=== PATIENT | female | born 1970 | race Caucasian/White ===

== ENCOUNTER → 2018-08-01 | Outpatient (CLI) | payer OTHER ==
--- NOTE | 2018-08-01 11:31 | KCIC ---
EXAM: Cervical spine MRI without contrast. HISTORY: Neck pain and left upper extremity radiculopathy. TECHNIQUE: Multiplanar, multisequence magnetic resonance imaging of the cervical spine was performed without contrast. COMPARISON: None. FINDINGS: There is slight reversal cervical lordosis centered at C6-C7. There is minimal anterolisthesis of C4 on C5 and retrolisthesis of C6 on C7. There is degenerative endplate remodeling with osteophytosis and disc space narrowing at C5-C6 and C6-C7. There are few endplate Schmorl's nodes at these levels. There is no suspicious osseous lesion. There is no acute or subacute fracture. There are slightly low-lying cerebellar tonsils, without ronald ectopia. There is a 1.8 cm T2 hyperintense lesion within the right thyroid lobe. No cervical or upper thoracic spinal cord lesion is seen. At C2-C3, there is mild left facet arthropathy. There is no stenosis. At C3-C4, there is a disc bulge with posterior lateral disc osteophyte complexes superimposed on endplate remodeling. There is no stenosis. At C4-C5, there is a disc bulge with left posterior lateral disc osteophyte complex superimposed on endplate remodeling. There is mild right and moderate left facet arthropathy. There is minimal left foraminal stenosis. At C5-C6, there is endplate remodeling. There is mild bilateral facet arthropathy. There is no stenosis. At C6-C7, there is a left paracentral to extraforaminal disc protrusion and osteophyte complex and a right foraminal to extra foraminal disc protrusion and osteophyte complex. These are superimposed on a disc bulge and endplate remodeling. There is mild left facet arthropathy. There is left uncovertebral arthropathy. There is severe left foraminal stenosis. IMPRESSION: 1. Multilevel degenerative change within the cervical spine, described in detail above. This results in minimal left foraminal stenosis at C4-C5 and severe left foraminal stenosis at C6-C7. 2. Slight reversal cervical lordosis and minimal listhesis at multiple levels. 3. 1.8 cm T2 hyperintense right thyroid nodule or cyst. This can be assessed with a thyroid sonogram. Electronically signed by: Ayse Herrera MD (08/01/2018 11:27 AM) [id number]
== END | disposition home or self-care (01) ==
LOC: KCIC MRI 10:30
DX: M48.02 Spinal stenosis, cervical region (principal); M47.812 Spondylosis without myelopathy or radiculopathy, cervical region; M50.223 Other cervical disc displacement at C6-C7 level; M40.292 Other kyphosis, cervical region; M25.78 Osteophyte, vertebrae; M12.88 Other specific arthropathies, not elsewhere classified, other specified site
CPT/HCPCS: 72141